=== PATIENT | male | born 1985 | race Hispanic/Latino ===

== ENCOUNTER 2017-12-25 11:52 | Emergency (ER) | payer BC, OTHER ==
[2017-12-25] MEDS ORDERED: KETOROLAC 30 MG/ML INJ ONE (12:09)
--- NOTE | 2017-12-25 12:48 | RAD REPORT ---
EXAM DESCRIPTION: CT - Stone Protocol - 12/25/2017 12:31 pm CLINICAL HISTORY: Flank pain. Right lower quadrant pain. COMPARISON: None. TECHNIQUE: Axial images were obtained without oral or IV contrast. Lack of contrast limits solid org an and vascular assessment. The [id number] spans the entirety of the system partially obscuring uppermost abdomen and lung bases. Coronal reformatted images were obtained and reviewed. All CT scans are performed using dose optimization technique as appropriate and may include automated exposure control or mA/KV adjustment according to patient size. FINDINGS: The lower lung lopez are clear. Imaged portions of the liver and spleen show no suspicious findings on non-contrast imaging. The panc reas and adrenal glands are normal. No pathologic lymphadenopathy in the abdomen or pelvis. 3 mm calculus is present in the distal right ureter resulting in mild right hydronephrosis. Additiona l punctate bilateral nephrolithiasis, largest measuring 2 mm mid-pole right kidney. No bowel obstruction, free air, free fluid or abscess. Normal appendix noted. No significant bony abnormality. IMPRESSION: 3 mm stone is present in the distal right ureter resulting in mild right hydronephrosis. 2 mm midpole stone right kidney.
[2017-12-25] MEDS ORDERED: NA CHLORIDE 0.9% 1,000 ML ONE (12:53)
[2017-12-25] MEDS ORDERED: ONDANSETRON 4 MG/2 ML VIAL ONE (12:53)
[2017-12-25] MEDS ORDERED: FENTANYL CITR 100 MCG/2 ML ONE (13:31)
[2017-12-25] MEDS ORDERED: TAMSULOSIN 0.4 MG SR CAP ONE (13:35)
[2017-12-25 13:36] LABS: Absolute Lymphocytes (CBC) 1.5 K/uL (0.7-4.9); Absolute Monocytes 0.6 K/uL (0.1-1.3); Absolute Neutrophil 9.7 K/uL (1.8-8.0); Basophils % 0.4 % (0-1.3); Eosinophils % 0.3 % (0-4.4); Hematocrit 45.4 % (39.6-49.0); Lymphocytes % 12.6 % (15.3-44.8); MCH 29.7 pg (27.0-35.0); MCV 88.2 fL (80-100); MPV 10.3 fL (7.6-11.3); Monocytes % 5.2 % (3.3-12.3); RBC Red Blood Cell Count 5.15 M/uL (4.33-5.43)
[2017-12-25 13:43] LABS: Urine Bacteria <20 /HPF (NONE SEEN); Urine Culture Reflex Order NOT NEEDED; Urine Mucus 2+ /HPF (NONE SEEN)
[2017-12-25 13:44] LABS: Potassium 3.7 mEq/L (3.6-5.0)
[2017-12-25] MEDS ORDERED: CEFTRIAXONE/SWI 1gm 1 GM/10 ML SYR ONE (14:08)
--- NOTE | 2017-12-25 14:27 | EDPHYS ---
Physician Documentation [facility] Name: Morales Marroquin Age: 31 yrs Sex: Male : 1985 Arrival Date: 12/25/2017 Time: 11:56 Bed 18 Private MD: out of town, doctor ED Physician Domenico Gayle HPI: 12/25 13:35 This 31 yrs old Male presents to ER via Ambulatory with complaints of snw Abdominal Pain. 13:35 The patient presents with abdominal pain in the right upper quadrant, right lower snw quadrant. Onset: The symptoms/episode began/occurred gradually, this morning, and became worse and became persistent just prior to arrival. The symptoms radiate to right back. Associated signs and symptoms: Pertinent positives: nausea and vomiting. The symptoms are described as sharp, shooting. Modifying factors: The symptoms are alleviated by nothing. Severity of pain: At its worst the pain was moderate severe. The patient has not experienced similar symptoms in the past, but family has similar symptoms, father, sister. The patient has not recently seen a physician. Historical: - Allergies: 12:01 No Known Allergies; ph - Home Meds: 12:01 Lisinopril Oral [Active]; ph - PMHx: 12:01 Hypertension; ph - PSHx: 12:01 None; ph - Immunization history:: Adult Immunizations unknown. - Social history:: Smoking status: Patient/guardian denies using tobacco. - Ebola Screening: : No symptoms or risks identified at this time. ROS: 13:34 Constitutional: Negative for fever, chills, and weight loss, Eyes: Negative for injury, snw pain, redness, and discharge, ENT: Negative for injury, pain, and discharge, Neck: Negative for injury, pain, and swelling, Cardiovascular: Negative for chest pain, palpitations, and edema, Respiratory: Negative for shortness of breath, cough, wheezing, and pleuritic chest pain. 13:34 Back: Negative for injury and pain, : Negative for injury, bleeding, discharge, and swelling, MS/Extremity: Negative for injury and deformity, Skin: Negative for injury, rash, and discoloration, Neuro: Negative for headache, weakness, numbness, tingling, and seizure. 13:34 Abdomen/GI: Positive for abdominal pain, nausea and vomiting. 13:34 Back: Positive for pain at rest. Exam: 13:34 Constitutional: This is a well developed, well nourished patient who is awake, alert, snw and in no acute distress. Head/Face: Normocephalic, atraumatic. Eyes: Pupils equal round and reactive to light, extra-ocular motions intact. Lids and lashes normal. Conjunctiva and sclera are non-icteric and not injected. Cornea within normal limits. Periorbital areas with no swelling, redness, or edema. ENT: Nares patent. No nasal discharge, no septal abnormalities noted. Tympanic membranes are normal and external auditory canals are clear. Oropharynx with no redness, swelling, or masses, exudates, or evidence of obstruction, uvula midline. Mucous membranes moist. Neck: Trachea midline, no thyromegaly or masses palpated, and no cervical lymphadenopathy. Supple, full range of motion without nuchal rigidity, or vertebral point tenderness. No Meningismus. Chest/axilla: Normal chest wall appearance and motion. Nontender with no deformity. No lesions are appreciated. Cardiovascular: Regular rate and rhythm with a normal S1 and S2. No gallops, murmurs, or rubs. Normal PMI, no JVD. No pulse deficits. Respiratory: Lungs have equal breath sounds bilaterally, clear to auscultation and percussion. No rales, rhonchi or wheezes noted. No increased work of breathing, no retractions or nasal flaring. Back: No spinal tenderness. No costovertebral tenderness. Full range of motion. Skin: Warm, dry with normal turgor. Normal color with no rashes, no lesions, and no evidence of cellulitis. MS/ Extremity: Pulses equal, no cyanosis. Neurovascular intact. Full, normal range of motion. Neuro: Awake and alert, GCS 15, oriented to person, place, time, and situation. Cranial nerves II-XII grossly intact. Motor strength 5/5 in all extremities. Sensory grossly intact. Cerebellar exam normal. Normal gait. 13:34 Abdomen/GI: Inspection: abdomen appears normal, Bowel sounds: normal, Palpation: moderate abdominal tenderness, in the posterior aspect of right lateral abdomen, right upper quadrant and right lower quadrant. Vital Signs: 12:01 BP 120 / 81; Pulse 84; Resp 22; Temp 98.1(O); Pulse Ox 99% on R/A; Weight 97.52 kg; ph Height 5 ft. 10 in. (177.80 cm); Pain 9/10; 13:00 BP 139 / 79; Pulse 72; Resp 18; Pulse Ox 97% on R/A; dh3 14:00 BP 135 / 85; Pulse 80; Resp 19; Pulse Ox 100% on R/A; dh3 14:40 BP 143 / 92; Pulse 88; Resp 16; Pulse Ox 98% on R/A; Pain 6/10; em 12:01 Body Mass Index 30.85 (97.52 kg, 177.80 cm) ph MDM: 12:06 Patient medically screened. snw 14:28 Data reviewed: vital signs, nurses notes. Data interpreted: Pulse oximetry: on room air snw is 100 %. Interpretation: normal. Counseling: I had a detailed discussion with the patient and/or guardian regarding: the historical points, exam findings, and any diagnostic results supporting the discharge/admit diagnosis, the presence of at least one elevated blood pressure reading (>120/80) during this emergency department visit, lab results, radiology results, the need for outpatient follow up, to return to the emergency department if symptoms worsen or persist or if there are any questions or concerns that arise at home. Special discussion: Based on the patient's Hx, exam, and Dx evaluation, there is no indication for emergent surgery or inpatient Tx. It is understood by the patient/guardian that if the Sx's persist or worsen they need to return immediately for re-evaluation. I have referred the patient to see his PCP for further evaluation of high blood pressure. Based on the history and exam findings, there is no indication for further emergent testing or inpatient evaluation. I discussed with the patient/guardian the need to see the primary care provider for further evaluation of the symptoms. I discussed with the patient/guardian the need to see the urologist for further evaluation of the symptoms. 12/25 12:05 Order name: Urine Microscopic Only; Complete Time: 13:45 snw 12/25 12:46 Order name: CBC with Diff; Complete Time: 13:45 snw 12/25 12:05 Order name: CT Stone Protocol; Complete Time: 12:49 snw 12/25 12:46 Order name: Chem 7; Complete Time: 13:45 snw 12/25 12:05 Order name: Urine Dipstick-Ancillary (obtain specimen); Complete Time: 13:15 snw 12/25 13:17 Order name: [facility] [place]. Order: please change ivf rate to bolus; Complete Time: 13:21 snw Administered Medications: 12:46 CANCELLED (other intervention used): TORadol 60 mg IM once snw 12:47 Drug: TORadol 30 mg Route: IVP; Site: right antecubital; iw 13:15 Follow up: Response: No adverse reaction; Pain is decreased em 12:57 Drug: NS 0.9% 1000 ml Route: IV; Rate: 125 ml/hr; Site: right antecubital; iw 14:28 Follow up: IV Status: Completed infusion; IV Intake: 1000ml em 12:57 Drug: Zofran 4 mg Route: IVP; Site: right antecubital; iw 13:15 Follow up: Response: No adverse reaction; Nausea is decreased em 13:37 Drug: fentaNYL (PF) 25 mcg Route: IVP; Site: right antecubital; iw 14:29 Follow up: Response: No adverse reaction; Pain is decreased em 13:38 Drug: Flomax 0.4 mg Route: PO; em 14:29 Follow up: Response: No adverse reaction em 14:27 Drug: Rocephin 1 grams Route: IV; Rate: calculated rate; Site: right antecubital; iw 14:29 Follow up: Response: No adverse reaction; IV Status: Completed infusion em 14:43 Drug: fentaNYL (PF) 50 mcg Route: IM; Site: right deltoid; em 14:55 Follow up: Response: No adverse reaction em Disposition: 18:42 Co-signature as Attending Physician, Domenico Gayle MD I agree with the assessment and kdr plan of care. Disposition: 12/25/17 14:27 Discharged to Home. Impression: Hydronephrosis with renal and ureteral calculous obstruction, Dehydration. - Condition is Stable. - Discharge Instructions: Kidney Stones, Orthostatic Hypotension, Hydronephrosis, Dietary Guidelines to Help Prevent Kidney Stones, Rehydration, Adult. - Prescriptions for Augmentin 875- 125 mg Oral Tablet - take 1 tablet by ORAL route every 12 hours for 10 days; 20 tablet. Zofran 4 mg Oral Tablet - take 1 tablet by ORAL route every 12 hours As needed; 20 tablet. Flomax 0.4 mg Oral Capsule, Sust. Release 24 hr - take 1 capsule by ORAL route once daily 1/2 hour following the same meal each day; 30 capsule. Diclofenac Sodium 75 mg Oral Tablet Sustained Release - take 1 tablet by ORAL route 2 times per day; 30 tablet. - Work release form, Medication Reconciliation Form, Thank You Letter, Antibiotic Education, Prescription Opioid Use form. - Follow up: Ena Meehan; When: 5 - 6 days; Reason: Recheck today's complaints, Continuance of care. Follow up: Private Physician; When: 2 - 3 days; Reason: Recheck today's complaints, Continuance of care, Re-evaluation by your physician. Signatures: Dispatcher [employer] EDDomenico Martínez MD MD kdr Therrien, Shelly, SISSY-C SOLAR SALES MANAGER-Varunw Reynaldo Winters LVN TECHNICAL MANAGER [employer] em Ema Jade RN RN iw Maite Brown RN RN ph Corrections: (The following items were deleted from the chart) 12:46 12:05 TORadol 60 mg IM once ordered. snw snw 12:46 12:46 TORadol 60 mg IM once ordered. snw snw 14:56 14:27 12/25/2017 14:27 Discharged to Home. Impression: Hydronephrosis with renal and em ureteral calculous obstruction; Dehydration. Condition is Stable. Discharge Instructions: Kidney Stones, Hydronephrosis, Dietary Guidelines to Help Prevent Kidney Stones, Rehydration, Adult. Prescriptions for Augmentin 875-125 mg Oral Tablet - take 1 tablet by ORAL route every 12 hours for 10 days; 20 tablet, Zofran 4 mg Oral Tablet - take 1 tablet by ORAL route every 12 hours As needed; 20 tablet, Flomax 0.4 mg Oral Capsule, Sust. Release 24 hr - take 1 capsule by ORAL route once daily 1/2 hour following the same meal each day; 30 capsule, Diclofenac Sodium 75 mg Oral Tablet Sustained Release - take 1 tablet by ORAL route 2 times per day; 30 tablet. and Forms are Medication Reconciliation Form, Thank You Letter, Antibiotic Education, Prescription Opioid Use. Follow up: Ena Meehan; When: 5 - 6 days; Reason: Recheck today's complaints, Continuance of care. Follow up: Private Physician; When: 2 - 3 days; Reason: Recheck today's complaints, Continuance of care, Re-evaluation by your physician. snw
--- NOTE | 2017-12-25 14:27 | ER ---
Nurse's Notes [facility] Name: Morales Marroquin Age: 31 yrs Sex: Male : 1985 Arrival Date: 12/25/2017 Time: 11:56 Bed 18 Private MD: out of town, doctor Diagnosis: Hydronephrosis with renal and ureteral calculous obstruction;Dehydration Presentation: 12/25 11:59 Presenting complaint: Patient states: Reports RLQ pain and nausea, denies V/D or fever, ph pt diaphoretic and restless in triage. Transition of care: patient was not received from another setting of care. Onset of symptoms was December 25, 2017. Risk Assessment: Do you want to hurt yourself or someone else? Patient reports no desire to harm self or others. Initial Sepsis Screen: Does the patient meet any 2 criteria? No. Patient's initial sepsis screen is negative. Does the patient have a suspected source of infection? No. Patient's initial sepsis screen is negative. Care prior to arrival: None. 11:59 Method Of Arrival: Ambulatory ph 11:59 Acuity: MAGGIE 3 ph Historical: - Allergies: 12:01 No Known Allergies; ph - Home Meds: 12:01 Lisinopril Oral [Active]; ph - PMHx: 12:01 Hypertension; ph - PSHx: 12:01 None; ph - Immunization history:: Adult Immunizations unknown. - Social history:: Smoking status: Patient/guardian denies using tobacco. - Ebola Screening: : No symptoms or risks identified at this time. Screenin:16 Abuse screen: Denies threats or abuse. Nutritional screening: No deficits noted. em Tuberculosis screening: No symptoms or risk factors identified. Fall Risk None identified. Assessment: 12:30 General: Appears in no apparent distress. uncomfortable, Behavior is cooperative. Pain: em Complains of pain in right lower quadrant Pain currently is 9 out of 10 on a pain scale. Quality of pain is described as stabbing, Pain began 1 hour ago. Neuro: Level of Consciousness is awake, alert, obeys commands, Oriented to person, place, time, situation. Cardiovascular: Capillary refill < 3 seconds Patient's skin is warm and dry. Respiratory: Airway is patent Respiratory effort is even, unlabored, Respiratory pattern is regular, symmetrical. GI: Bowel sounds present X 4 quads. Abd is soft X 4 quads Abdomen is tender to palpation in right lower quadrant. : Denies burning with urination. EENT: No signs and/or symptoms were reported regarding the EENT system. Derm: Skin is intact, Skin is pink, warm \T\ dry. Musculoskeletal: Range of motion: intact in all extremities. 12:40 Reassessment: Patient appears in no apparent distress at this time. I agree with above iw assessment by Reynaldo Winters LVN. 13:00 Reassessment: Patient appears in no apparent distress at this time. Patient and/or em family updated on plan of care and expected duration. Pain level reassessed. Patient is alert, oriented x 3, equal unlabored respirations, skin warm/dry/pink. Patient states feeling better. 14:00 Reassessment: Patient appears in no apparent distress at this time. Patient and/or em family updated on plan of care and expected duration. Pain level reassessed. Patient is alert, oriented x 3, equal unlabored respirations, skin warm/dry/pink. 14:50 Reassessment: Patient appears in no apparent distress at this time. Patient and/or em family updated on plan of care and expected duration. Pain level reassessed. Patient is alert, oriented x 3, equal unlabored respirations, skin warm/dry/pink. Vital Signs: 12:01 BP 120 / 81; Pulse 84; Resp 22; Temp 98.1(O); Pulse Ox 99% on R/A; Weight 97.52 kg; ph Height 5 ft. 10 in. (177.80 cm); Pain 9/10; 13:00 BP 139 / 79; Pulse 72; Resp 18; Pulse Ox 97% on R/A; dh3 14:00 BP 135 / 85; Pulse 80; Resp 19; Pulse Ox 100% on R/A; dh3 14:40 BP 143 / 92; Pulse 88; Resp 16; Pulse Ox 98% on R/A; Pain 6/10; em 12:01 Body Mass Index 30.85 (97.52 kg, 177.80 cm) ph ED Course: 11:56 Patient arrived in ED. mr 11:56 out of town, doctor is Private Physician. mr 12:00 Triage completed. ph 12:01 Arm band placed on. ph 12:04 [facility]C [facility] snw 12:04 Domenico Gayle MD is Attending Physician. snw 12:06 Reynaldo Winters LVN is Primary Nurse. em 12:[address] via wheelchair. mw3 12:31 CT Stone Protocol In Process Unspecified. EDMS 12:50 Inserted saline lock: 20 gauge in right antecubital area, using aseptic technique. em Blood collected. 12:50 Initial lab(s) drawn, by me, sent to lab. em 13:17 Patient has correct armband on for positive identification. Bed in low position. Adult em w/ patient. 13:19 No provider procedures requiring assistance completed. em 14:27 Ena Meehan MD is Referral Physician. snw 14:55 IV discontinued, intact, bleeding controlled, No redness/swelling at site. Pressure em dressing applied. Administered Medications: 12:46 CANCELLED (other intervention used): TORadol 60 mg IM once snw 12:47 Drug: TORadol 30 mg Route: IVP; Site: right antecubital; iw 13:15 Follow up: Response: No adverse reaction; Pain is decreased em 12:57 Drug: NS 0.9% 1000 ml Route: IV; Rate: 125 ml/hr; Site: right antecubital; iw 14:28 Follow up: IV Status: Completed infusion; IV Intake: 1000ml em 12:57 Drug: Zofran 4 mg Route: IVP; Site: right antecubital; iw 13:15 Follow up: Response: No adverse reaction; Nausea is decreased em 13:37 Drug: fentaNYL (PF) 25 mcg Route: IVP; Site: right antecubital; iw 14:29 Follow up: Response: No adverse reaction; Pain is decreased em 13:38 Drug: Flomax 0.4 mg Route: PO; em 14:29 Follow up: Response: No adverse reaction em 14:27 Drug: Rocephin 1 grams Route: IV; Rate: calculated rate; Site: right antecubital; iw 14:29 Follow up: Response: No adverse reaction; IV Status: Completed infusion em 14:43 Drug: fentaNYL (PF) 50 mcg Route: IM; Site: right deltoid; em 14:55 Follow up: Response: No adverse reaction em Intake: 14:28 IV: 1000ml; Total: 1000ml. em Outcome: 14:27 Discharge ordered by MD. armstrong 14:55 Discharged to home ambulatory. em 14:55 Condition: good 14:55 Discharge instructions given to patient, family, Instructed on discharge instructions, follow up and referral plans. medication usage, Demonstrated understanding of instructions, follow-up care, medications, Prescriptions given X 4. 14:56 Patient left the ED. em Signatures: Dispatcher [employer] EDMS Missy Holder, SISSY-C ARBORICULTURIST-Csnw [place] mr Singh, Reynaldo, ASSISTANT CITY ATTORNEY ASSISTANT CITY ATTORNEY em Ema Jade, RN RN Maite Brown RN RN Lester, Kathleen 3 Radha Dutton 3
== END 2017-12-25 14:56 | disposition home or self-care (01) ==
LOC: ER 11:52
DX: N13.2 Hydronephrosis with renal and ureteral calculous obstruction (principal); E86.0 Dehydration; I10 Essential (primary) hypertension
CPT/HCPCS: 36415; 74176; 76377; 80048; 81015; 85025; 96361; 96372; 96374; 96375; 99284; J0696; J2405; J3010; J7030